=== PATIENT | female | born 1965 | race Caucasian/White ===

== ENCOUNTER → 2016-07-31 | Outpatient (CLI) | payer OTHER ==
[~2016-07-31] MED LIST: GABA-113 PO; LORA-741 PO; PANT40TA PO; SINUS MEDICATION PO; TRAM-10 PO
== END | disposition home or self-care (01) ==
LOC: C.LABSPEC 17:38
PROVIDERS: ATTEND Family Medicine
DX: R30.0 Dysuria (principal); R31.9 Hematuria, unspecified

== ENCOUNTER → 2016-12-06 | Day surgery (SDC) | payer OTHER ==
[2016-11-23 10:24] VITALS: Ht 180.3 cm; Wt 68.2 kg
[~2016-12-06] VITALS: Ht 180.3 cm; Wt 68.2 kg
[~2016-12-06] MED LIST changes: +IOPAMIDOL INJ 61% 15 ML VIAL ONE; +LIDOCAINE HCL 1% MPF 5 ML VIAL ONE; +SODIUM CHLORIDE 0.9% INJ 10 ML VIAL ONE
== END | disposition home or self-care (01) ==
LOC: C.PAT 13:35 → EDSTATUS 13:45
PROVIDERS: ATTEND Physical Medicine & Rehabilitation
DX: M51.26 Other intervertebral disc displacement, lumbar region (principal)

== ENCOUNTER → 2017-06-01 | Outpatient (CLI) | payer OTHER ==
[~2017-06-01] MED LIST changes: -IOPAMIDOL INJ 61% 15 ML VIAL ONE; -LIDOCAINE HCL 1% MPF 5 ML VIAL ONE; -SODIUM CHLORIDE 0.9% INJ 10 ML VIAL ONE
[2017-06-01 18:10] LABS: URINE EPITHELIAL CELL AUTO >30 /lpf (0-5); ZZInitiateTest Complete
[2017-06-01 18:20] LABS: MANUAL MICROSCOPIC REQUIRED? NO; REVIEW REQ? YES
[2017-06-01 18:54] LABS: URINE MUCUS PRESENT (NONE PRSENT)
== END | disposition home or self-care (01) ==
LOC: C.LABSPEC 16:59
PROVIDERS: ATTEND Nurse Practitioner Family
DX: R39.9 Unspecified symptoms and signs involving the genitourinary system (principal)

== ENCOUNTER → 2017-07-09 | Outpatient (CLI) | payer OTHER ==
[~2017-07-09] MED LIST changes: +FLUT0.15 NAE; -SINUS MEDICATION PO
[2017-07-09 17:45] LABS: HEMATOCRIT 35.7 % (37-47); HEMOGLOBIN 11.3 g/dL (12.0-16.0); MEAN CELL VOLUME 68.8 fL (80-100); MEAN CORPUSCULAR HEMOGLOBIN 21.8 pg (25-34); MEAN CORPUSCULAR HGB CONC 31.7 g/dl (32-36); NUCLEATED RED BLOOD CELL ABS 0.06 K/uL (0-0); RED CELL DISTRIBUTION WIDTH CV 16.3 % (11.5-14.5); RED CELL DISTRIBUTION WIDTH SD 40.1 fL (36.4-46.3); WHITE BLOOD COUNT 10.83 K/uL (4.8-10.8)
[2017-07-09 18:07] LABS: BASO % 0.7 %; BASO ABS # 0.08 K/uL (0-0.2); EOS % 6.8 %; EOS ABS # 0.74 K/uL (0-0.5); IG# 0.02 K/uL (0.00-0.02); LYMPH % 32.7 %; LYMPH ABS # 3.54 K/uL (1.2-3.4); MONO % 7.3 %; MONO ABS # 0.79 K/uL (0.11-0.59); NEUT % 52.3 %; NEUT ABS # 5.66 K/uL (1.4-6.5)
== END | disposition home or self-care (01) ==
LOC: C.LABPBG 13:46
PROVIDERS: ATTEND Family Medicine
DX: Z00.00 Encounter for general adult medical examination without abnormal findings (principal); Z13.220 Encounter for screening for lipoid disorders; Z13.1 Encounter for screening for diabetes mellitus; D56.9 Thalassemia, unspecified; R63.5 Abnormal weight gain

== ENCOUNTER → 2017-07-26 | Day surgery (SDC) | payer OTHER ==
[2017-07-06 15:43] VITALS: Ht 180.3 cm; Wt 67.3 kg
[~2017-07-26] VITALS: Ht 180.3 cm; Wt 67.3 kg
[~2017-07-26] MED LIST changes: +IOPAMIDOL INJ 61% 15 ML VIAL ONE; +LIDOCAINE HCL 1% MPF 5 ML VIAL ONE; +SODIUM CHLORIDE 0.9% INJ 10 ML VIAL ONE
--- NOTE | 2017-07-26 13:37 | History & Physical Bridge - [place] ---
H&P Re-Evaluation Bridge Note: I have examined the patient, reviewed the History & Physical and in the interval since the performance of the History & Physical I have noted the following changes of clinical significance: No changes noted
[2017-07-26 14:01] VITALS: BP 106/69; PULSE 67; TEMP 36.9; O2SAT 98
--- NOTE | 2017-07-26 14:01 | [facility] Post Operative Brief Note ---
Immediate Operative Summary Operative Date Jul 26, 2017. 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 Liang Peraza Client Success Director Surgeon(s) None Estimated Blood Loss 0 Findings Consistent with Post-Op Diagnosis Specimens NA Anesthesia Type Local Complication(s) none Disposition Disposition:
--- NOTE | 2017-07-26 14:03 | Discharge Instructions ---
Discharge Instructions Date of Service Jul 26, 2017. Visit Reason for Visit: Lumbosacral Disc Displacement Discharge Discharge Diagnosis / Problem: right greater than left leg pain Discharge Goals Goal(s): Decrease discomfort, Improve function Activity Recommendations Activity Limitations: resume your previous activity Anesthesia . Post Anesthesia Instructions: If you have had General Anesthesia or IV Sedation: * Do not drive today. * Resume driving when surgeon permits. * Do not make important decisions or sign legal documents today. * Call surgeon for: 1. Temperature elevations greater than 101 degrees F. 2. Uncontrollable pain. 3. Excessive bleeding. 4. Persistent nausea and vomiting. 5. Medication intolerance (nausea, vomiting or rash). * For nausea and vomiting use only clear liquids such as: tea, soda, bouillon until nausea subsides, then gradually increase diet as tolerated. * If you have any concerns or questions, call your surgeon's office. If physician is unavailable and it is an emergency, call 911 or go to the nearest emergency room. . Diet Recommendations Recommended Home Diet: resume previous diet Procedures Procedures Performed: Lumbar Epidural Steroid Injection Pending Studies Studies pending at discharge: no Medical Emergencies . Who to Call and When: Medical Emergencies: If at any time you feel your situation is an emergency, please call 911 immediately. . Non-Emergent Contact Non-Emergency issues call your: Specialist . . "Provider Documentation" section prepared by Roberto Peraza. .
--- NOTE | 2017-07-26 14:48 | OPERATIVE REPORT ---
DATE OF OPERATION: 07/26/2017 PREOPERATIVE DIAGNOSIS: L5-S1 herniated nucleus pulposus with right lower extremity radiculopathy. POSTOPERATIVE DIAGNOSIS: Same. PROCEDURE: Right paramedian L5-S1 intralaminar epidural steroid injection under fluoroscopic guidance. INDICATIONS: The patient is a 51-year-old white female who presents for an epidural injection. She has gotten some benefit from the gabapentin; however, had not enough and presents today for an epidural to provide her with relief of continuing radicular pain down the left greater than right leg. PHYSICAL EXAMINATION: Pleasant female seated comfortably. No focal weakness, increased sensitivity to the right L5 dermatomal distribution to light touch, but decreased in the S1 dermatomal distribution in the right lower extremity. CONSENT: Verbal and written consent was obtained from the patient. Risks and benefits were reviewed. Risks include but are not limited to epidural abscess, epidural hematoma, allergic reaction, dural puncture. The patient wishes to proceed. PROCEDURE: The patient was taken back to the special procedures room of the [facility] where she was maintained in a prone position. Backside was cleansed with Betadine x3 and a dry sterile dressing was applied. Fluoroscope was used to identify the L5-S1 interlaminar space. Overlying skin on the right side was anesthetized with 4 mL of lidocaine 1% with a 25-gauge 1.5-inch needle. A 22-gauge 4-1/4 inch Tuohy needle was then directed down towards the interlaminar space. It was advanced and laterally was noted loss of resistance at a depth of 9.5 cm. Isovue-300 contrast 1 mL was injected, which demonstrated an epidural uptake pattern. She then underwent injection after negative aspiration of 40 mg of Depo-Medrol and 4 mL of preservative-free sodium chloride. Injection was well tolerated and reproduced a familiar transient radicular sensation down the leg. DISPOSITION: 1. The patient is taken out into the discharge recovery area where she will be discharged home once discharge criteria have been met. 2. Follow up in the [facility] office in 2-4 weeks. I attest to the content of the Intraoperative Record and any orders documented therein. Any exception s are noted below.
== END | disposition home or self-care (01) ==
LOC: X.SURG 12:43
PROVIDERS: ATTEND Physical Medicine & Rehabilitation
DX: M51.17 Intervertebral disc disorders with radiculopathy, lumbosacral region (principal)

== ENCOUNTER 2018-12-10 10:49 | Inpatient (IN) ==
[2018-12-10] MEDS ORDERED: ALBUT/IPRATROP 3MG/0.5MG NEB 3 ML VIAL INH STA (11:20)
--- NOTE | 2018-12-10 11:29 | Emergency Department Note ---
History of Present Illness General Chief complaint: Shortness of Breath/Dyspnea Stated complaint: SOB,COUGHING,WEAKNESS,FEVER CHILLS,PNEUMONIA Time Seen by Provider: 12/10/18 11:00 History of Present Illness 52-year-old female who presents the emergency department with complaint of persistent pneumonialike symptoms, including shortness of breath, productive cough, weakness, fever lower central chest pain. The patient reports that she became sick approximately a month ago. She has 2 twin granddaughters with cystic fibrosis that developed pneumonia around that time. When the patient did not improve, she was seen at the [facility] urgent care center in [place], and had a chest x-ray showing pneumonia. She does not recall where the consolidation was located. She was treated with Levaquin antibiotics daily for 5 days. She reports that by day 3, she was feeling better, but shortly after finishing the antibiotics, her symptoms worsened again. She was also placed on prednisone and an albuterol inhaler. She reports that all the prednisone did was make her angry and made her work harder. The patient has also been taking DayQuil. 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 She also reports that she was admitted to [facility] approximately 2 years ago for sepsis from pneumonia. She denies any other baseline cardiopulmonary disease. She currently rates her discomfort a 5 out of 10. The patient reports that her was concerned because she was sweating this morning and seemed to be incoherent when he awakened her around 4 AM. The patient reports feeling so weak that her was going to call 911. The patient was able to drive herself to the emergency department. Home Medications Home Medications Medication Instructions Recorded Confirmed Type cyanocobalamin (vitamin B-12) 1,000 mcg PO QAM 08/16/18 12/10/18 History [Vitamin B-12] fluticasone propionate [Flonase 2 spray INTRANASAL QAM 08/16/18 12/10/18 History Allergy Relief] montelukast 10 mg PO HS 08/16/18 12/10/18 History acetaminophen [Tylenol] 325 mg PO Q6H PRN 12/10/18 12/10/18 History gabapentin 800 mg PO TID 12/10/18 12/10/18 History ranitidine HCl 75 mg PO QAM 12/10/18 12/10/18 History tramadol 100 mg PO Q6H PRN 12/10/18 12/10/18 History Allergies Allergy/AdvReac Type Severity Reaction Status Date / Time latex Allergy Mild severe Verified 12/10/18 12:00 rash "looks like a burn" Penicillins Allergy Mild HIVES Verified 12/10/18 12:00 ciprofloxacin Allergy Hives Verified 12/10/18 17:31 NSAIDS (Non-Steroidal AdvReac Severe BLEEDING/STOMACH Verified 12/10/18 12:00 Anti-Inflamma ULCERS Past Med/Surg History Medical History Anxiety no meds Chronic back pain GERD (gastroesophageal reflux disease) History of anesthesia reaction difficulty waking up after splenectomy History of gastric ulcer Kidney stones Thalassemia Surgical History History of appendectomy History of bilateral tubal ligation History of dilatation and curettage History of esophagogastroduodenoscopy (EGD) 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 History of tooth extraction History of total abdominal hysterectomy and bilateral salpingo-oophorectomy History of wisdom tooth extraction Family History Mother Family history of diabetes mellitus Father , due to [place] Myocardial infarction Mother Stroke x2 at 36 and 38 y/o Other No family history of adverse response to anesthesia Social History Preferred Language: Turkmen Communication Ability: Effective Beliefs That Will Affect Care: None Current Living Situation: Spouse and Family Current Living Situation Comment: Lives with and granddaughter Feels Safe at Home: Yes Smoking Status: Current every day smoker Tobacco Type: cigarettes Cigarettes Per Day: 10-20 Second Hand Exposure: No Hx Alcohol Use: No Hx Substance Use: No Review of Systems HEENT: Denies dizziness, visual problems, hearing loss, tinnitus. Denies difficulty swallowing or oral lesions. PULMONARY: See HPI. CARDIOVASCULAR: Denies palpitations, dyspnea on exertion, orthopnea or peripheral edema. GASTROINTESTINAL: Denies diarrhea, constipation, nausea, vomiting, or abdominal pain. GENITOURINARY: Denies dysuria, frequency, urgency or nocturia. NEUROLOGIC: Denies history of epilepsy, CVA, TIA or chronic headaches. MUSCULOSKELETAL: Denies history of joint tenderness/swelling. SKIN: Denies rashes or lesions. PSYCHIATRIC: Denies history of depression or mental illness. ENDOCRINE: Denies history of diabetes or thyroid disorders. Physical Exam Vital Signs Vital Signs - 24 hr 12/10/18 10:57 12/10/18 11:31 12/10/18 11:36 Temperature 36.8 C Temperature Source Oral Sepsis Recent Fever Within 48 Hours No Sepsis New/Unexplained Change in Mental Status No Sepsis Action Taken by Nursing No Action Required Pulse Rate 101 H Pulse Rate [Apical] Pulse Rate from SpO2 Sensor Respiratory Rate 18 18 Respiratory Effort / Characteristics Non-Labored Spontaneous Blood Pressure 128/83 Blood Pressure [Left Arm] Blood Pressure Mean 98 Blood Pressure Mean [Left Arm] Pulse Oximetry 96 98 Oxygen Delivery Method Room Air Room Air Room Air 12/10/18 11:51 12/10/18 12:35 12/10/18 13:01 Temperature Temperature Source Sepsis Recent Fever Within 48 Hours Sepsis New/Unexplained Change in Mental Status Sepsis Action Taken by Nursing Pulse Rate 77 74 Pulse Rate [Apical] 86 Pulse Rate from SpO2 Sensor 80 74 Respiratory Rate 20 12 14 Respiratory Effort / Characteristics Blood Pressure 113/91 132/92 Blood Pressure [Left Arm] 123/73 Blood Pressure Mean 98 105 Blood Pressure Mean [Left Arm] 89 Pulse Oximetry 94 95 98 Oxygen Delivery Method Room Air Room Air 12/10/18 13:31 12/10/18 14:01 Temperature Temperature Source Sepsis Recent Fever Within 48 Hours Sepsis New/Unexplained Change in Mental Status Sepsis Action Taken by Nursing Pulse Rate 79 80 Pulse Rate [Apical] Pulse Rate from SpO2 Sensor 80 80 Respiratory Rate 15 16 Respiratory Effort / Characteristics Blood Pressure 122/81 135/86 Blood Pressure [Left Arm] Blood Pressure Mean 94 102 Blood Pressure Mean [Left Arm] Pulse Oximetry 93 93 Oxygen Delivery Method Room Air Room Air CONSTITUTIONAL: Healthy and well nourished. Alert and oriented X 3. She does not appear acutely ill or toxic. HEENT: Normocephalic, atraumatic. Pupils equal, round and reactive. Ears and nares are clear. No TM bulging, rhinorrhea or posterior pharyngeal yanelis thema/postnasal drip. NECK: Full active range of motion without discomfort. LYMPHATICS: No cervical chain adenopathy. RESPIRATORY: Clear to auscultation bilaterally with no wheezing, crackles, rho nchi or stridor. CARDIOVASCULAR: Regular rate and rhythm with no murmurs, rubs or gallops. GASTROINTESTINAL: Bowel sounds present in all quadrants. Soft and nontender to palpation. MUSCULOSKELETAL: Full range of motion of all joints without discomfort. INTEGUMENTARY: No rash or other significant dermatologic conditions noted. HEMATOLOGIC: No ecchymosis or petechiae. PSYCHIATRIC: Positive affect. NEUROLOGIC: No focal neurologic deficits noted. Course Patient history and physical exam were performed. Nurse's notes were reviewed. I also reviewed medical records, showing that the patient did have a two-view chest x-ray performed outside of our facility on 11/26/2018 that did not show any consolidations, pneumothorax or other concerning findings. Today's vital signs were reviewed. The patient is mildly tachycardic, otherwise is afebrile and normotensive. O2 saturation is 96% on room air. The patient did not appear in any acute respiratory distress. IV access was established, and labs were drawn, including blood cultures x2. An ECG was normal. A two- view chest x-ray does not show any consolidations, pneumothorax or cardiomegaly. The patient was administered a unit dose DuoNeb treatment without relief. Review of labs shows an elevated aodtc-eg-ngst troponin of 0.13. An additional lab troponin was ordered, showing 0.204. Patient also has a white count of over 18,000 with left shift and bandemia.Coagulation studies and CMP are normal. Acysd-bn-afco lactate was also normal. After seeing the elevated troponin, the patient was reexamined. She then admitted that she has been having intermittent left-sided chest pain, and is also had some recent pain radiating into the right shoulder. She reports significant exposure to secondhand smoke. She does not recall if she has an elevated cholesterol level. Both her father and paternal grandfather both in their early 60s from myocardial infarction. The patient was administered aspirin 324 mg and an inch of nitroglycerin paste to the chest wall as she was having pain rated a 5 out of 10. The case was then further discussed with Dr. Jordan, ED attending physician, who recommended consulting [facility] cardiology and hospitalist service. I did speak with Dr. Kevin, the hospitalist who also evaluated the patient. The [facility] cardiology service was paged but never returned our phone call. Administered Medications Tramadol HCl (Ultram) 100 mg PO Q6H PRN PRN Reason: Pain Stop: 01/09/19 15:33 Last Admin: 12/10/18 16:06 Dose: 100 mg Documented by: [id number] Discontinued Medications Albuterol (Duoneb) 3 ml INH NOW STA Stop: 12/10/18 11:21 Last Admin: 12/10/18 11:34 Dose: 3 ml Documented by: [id number] Aspirin (Aspirin) 324 mg PO NOW STA Stop: 12/10/18 12:54 Last Admin: 12/10/18 13:22 Dose: 324 mg Documented by: [id number] Diphenhydramine HCl (Benadryl Capsule) 50 mg PO NOW ONE Stop: 12/10/18 17:24 Last Admin: 12/10/18 17:55 Dose: Not Given Documented by: [id number] Diphenhydramine HCl (Benadryl Capsule) 25 mg PO NOW ONE Stop: 12/10/18 17:55 Last Admin: 12/10/18 18:46 Dose: 25 mg Documented by: [id number] Sodium Chloride (Nss 1000ml) 1,000 mls @ 999 mls/hr IV .Q1H1M NICHOLAS Stop: 12/10/18 12:30 Last Infusion: 12/10/18 12:55 Dose: 0 mls/hr Documented by: [id number] Admin: 12/10/18 11:50 Dose: 999 mls/hr Documented by: [id number] Acetaminophen (Ofirmev) 1,000 mg in 100 mls @ 400 mls/hr IV NOW STA Stop: 12/10/18 14:44 Last Infusion: 12/10/18 14:50 Dose: 0 mls/hr Documented by: [id number] Admin: 12/10/18 14:33 Dose: 400 mls/hr Documented by: [id number] Ciprofloxacin (Cipro) 400 mg in 200 mls @ 100 mls/hr IV Q12H NICHOLAS Stop: 12/20/18 15:59 Last Infusion: 12/10/18 17:55 Dose: 0 mls/hr Documented by: [id number] Infusion: 12/10/18 17:04 Dose: 0 mls/hr Documented by: [id number] Admin: 12/10/18 16:07 Dose: 100 mls/hr Documented by: [id number] Nitroglycerin (Nitro-Bid 2%) 1 inch EXT NOW ONE Stop: 12/10/18 12:54 Last Admin: 12/10/18 13:22 Dose: 1 inch Documented by: [id number] Medical Decision Making Medical Records Attestation: I reviewed the patient's medical records. Home Medications Current Medication List: was personally reviewed by me Laboratory Data Attestation: I reviewed the patient's lab results. Result diagrams: 12/10/18 11:26 12/10/18 11:26 Lab Results 12/10/18 12/10/18 12/10/18 Range/Units 11:26 11:26 11:26 WBC 18.23 H (4.8-10.8) K/uL RBC 5.30 (4.2-5.4) M/uL Hgb 12.0 (12.0-16.0) g/dL Hct 36.8 L (37-47) % MCV 69.4 L (80-100) fL MCH 22.6 L (25-34) pg MCHC 32.6 (32-36) g/dL RDW Std Deviation 42.4 (36.4-46.3) fL RDW Coeff of Chava 17.2 H (11.5-14.5) % Plt Count 544 H (130-400) K/uL MPV 9.3 (7.4-10.4) fL Immature Gran % (Auto) 0.3 % Neut % (Auto) 67.8 % Lymph % (Auto) 18.3 % [place] % (Auto) 7.2 % Eos % (Auto) 5.9 % Baso % (Auto) 0.5 % Immature Gran # (Auto) 0.06 H (0.00-0.02) K/uL Neut # (Auto) 12.36 H (1.4-6.5) K/uL Lymph # (Auto) 3.33 (1.2-3.4) K/uL [place] # (Auto) 1.31 H (0.11-0.59) K/uL Eos # (Auto) 1.08 H (0-0.5) K/uL Baso # (Auto) 0.09 (0-0.2) K/uL Polychromasia 1+ Hypochromasia Present Basophilic Stippling Occasional Microcytosis Present Target Cells 1+ [place] Bodies 1+ Schistocytes 1+ PT 9.8 (9.0-12.0) Seconds INR 1.0 (0.9-1.1) APTT 24.7 (21.0-31.0) Seconds PTT Ratio 0.9 Sodium 142 (136-145) mmol/L Potassium 4.1 (3.5-5.1) mmol/L Chloride 111 H (98-107) mmol/L Carbon Dioxide 28 (21-32) mmol/L Anion Gap 3.0 (3-11) BUN 10 (7-18) mg/dl Creatinine 0.71 (0.6-1.2) mg/dl Est Cr Clr Drug Dosing 109.4 ml/min Est GFR ( Amer) 115.1 Est GFR (Non-Af Amer) 99.3 BUN/Creatinine Ratio 14.4 (10-20) Glucose 78 (70-99) mg/dl POC Lactic Acid Reji (0.90-1.70) mmol/L Calcium 8.7 (8.5-10.1) mg/dl Total Bilirubin 0.2 (0.2-1) mg/dl AST 18 (15-37) U/L ALT 20 (12-78) U/L Alkaline Phosphatase 74 (45-117) U/L POC Troponin I (0-0.045) ng/ml Troponin I 0.204 H* (0-0.045) ng/ml Total Protein 7.2 (6.4-8.2) gm/dl Albumin 3.2 L (3.4-5.0) gm/dl Globulin 4.0 (2.5-4.0) gm/dl Albumin/Globulin Ratio 0.8 L (0.9-2) Urine Color Urine Appearance (Clear) Urine pH (4.5-7.5) Ur Specific [place] (1.000-1.030) Urine Protein (Negative) Urine Glucose (UA) (Negative) Urine Ketones (Negative) Urine Blood (Negative) Urine Nitrite (Negative) Urine Bilirubin (Negative) Urine Urobilinogen (Negative) Ur Leukocyte Esterase (Negative) Urine WBC (Auto) (0-5) /hpf Urine RBC (Auto) (0-4) /hpf U Hyaline Cast (Auto) (0-5) /lpf U Epithel Cells (Auto) (0-5) /lpf Urine Bacteria (Auto) (Negative) 12/10/18 12/10/18 12/10/18 Range/Units 11:51 11:54 11:55 WBC (4.8-10.8) K/uL RBC (4.2-5.4) M/uL Hgb (12.0-16.0) g/dL Hct (37-47) % MCV (80-100) fL MCH (25-34) pg MCHC (32-36) g/dL RDW Std Deviation (36.4-46.3) fL RDW Coeff of Chava (11.5-14.5) % Plt Count (130-400) K/uL MPV (7.4-10.4) fL Immature Gran % (Auto) % Neut % (Auto) % Lymph % (Auto) % [place] % (Auto) % Eos % (Auto) % Baso % (Auto) % Immature Gran # (Auto) (0.00-0.02) K/uL Neut # (Auto) (1.4-6.5) K/uL Lymph # (Auto) (1.2-3.4) K/uL [place] # (Auto) (0.11-0.59) K/uL Eos # (Auto) (0-0.5) K/uL Baso # (Auto) (0-0.2) K/uL Polychromasia Hypochromasia Basophilic Stippling Microcytosis Target Cells [place] Bodies Schistocytes PT (9.0-12.0) Seconds INR (0.9-1.1) APTT (21.0-31.0) Seconds PTT Ratio Sodium (136-145) mmol/L Potassium (3.5-5.1) mmol/L Chloride (98-107) mmol/L Carbon Dioxide (21-32) mmol/L Anion Gap (3-11) BUN (7-18) mg/dl Creatinine (0.6-1.2) mg/dl Est Cr Clr Drug Dosing ml/min Est GFR ( Amer) Est GFR (Non-Af Amer) BUN/Creatinine Ratio (10-20) Glucose (70-99) mg/dl POC Lactic Acid Reji 1.49 (0.90-1.70) mmol/L Calcium (8.5-10.1) mg/dl Total Bilirubin (0.2-1) mg/dl AST (15-37) U/L ALT (12-78) U/L Alkaline Phosphatase (45-117) U/L POC Troponin I 0.13 H (0-0.045) ng/ml Troponin I (0-0.045) ng/ml Total Protein (6.4-8.2) gm/dl Albumin (3.4-5.0) gm/dl Globulin (2.5-4.0) gm/dl Albumin/Globulin Ratio (0.9-2) Urine Color Yellow Urine Appearance Clear (Clear) Urine pH 7.0 (4.5-7.5) Ur Specific [place] 1.016 (1.000-1.030) Urine Protein Negative (Negative) Urine Glucose (UA) Negative (Negative) Urine Ketones Negative (Negative) Urine Blood 1+ H (Negative) Urine Nitrite Negative (Negative) Urine Bilirubin Negative (Negative) Urine Urobilinogen Negative (Negative) Ur Leukocyte Esterase 2+ H (Negative) Urine WBC (Auto) 1-5 (0-5) /hpf Urine RBC (Auto) 5-10 H (0-4) /hpf U Hyaline Cast (Auto) 0 (0-5) /lpf U Epithel Cells (Auto) 10-20 H (0-5) /lpf Urine Bacteria (Auto) Negative (Negative) 12/10/18 Range/Units 13:53 WBC (4.8-10.8) K/uL RBC (4.2-5.4) M/uL Hgb (12.0-16.0) g/dL Hct (37-47) % MCV (80-100) fL MCH (25-34) pg MCHC (32-36) g/dL RDW Std Deviation (36.4-46.3) fL RDW Coeff of Chava (11.5-14.5) % Plt Count (130-400) K/uL MPV (7.4-10.4) fL Immature Gran % (Auto) % Neut % (Auto) % Lymph % (Auto) % [place] % (Auto) % Eos % (Auto) % Baso % (Auto) % Immature Gran # (Auto) (0.00-0.02) K/uL Neut # (Auto) (1.4-6.5) K/uL Lymph # (Auto) (1.2-3.4) K/uL [place] # (Auto) (0.11-0.59) K/uL Eos # (Auto) (0-0.5) K/uL Baso # (Auto) (0-0.2) K/uL Polychromasia Hypochromasia Basophilic Stippling Microcytosis Target Cells [place] Bodies Schistocytes PT (9.0-12.0) Seconds INR (0.9-1.1) APTT (21.0-31.0) Seconds PTT Ratio Sodium (136-145) mmol/L Potassium (3.5-5.1) mmol/L Chloride (98-107) mmol/L Carbon Dioxide (21-32) mmol/L Anion Gap (3-11) BUN (7-18) mg/dl Creatinine (0.6-1.2) mg/dl Est Cr Clr Drug Dosing ml/min Est GFR ( Amer) Est GFR (Non-Af Amer) BUN/Creatinine Ratio (10-20) Glucose (70-99) mg/dl POC Lactic Acid Reji (0.90-1.70) mmol/L Calcium (8.5-10.1) mg/dl Total Bilirubin (0.2-1) mg/dl AST (15-37) U/L ALT (12-78) U/L Alkaline Phosphatase (45-117) U/L POC Troponin I (0-0.045) ng/ml Troponin I 0.309 H* (0-0.045) ng/ml Total Protein (6.4-8.2) gm/dl Albumin (3.4-5.0) gm/dl Globulin (2.5-4.0) gm/dl Albumin/Globulin Ratio (0.9-2) Urine Color Urine Appearance (Clear) Urine pH (4.5-7.5) Ur Specific [place] (1.000-1.030) Urine Protein (Negative) Urine Glucose (UA) (Negative) Urine Ketones (Negative) Urine Blood (Negative) Urine Nitrite (Negative) Urine Bilirubin (Negative) Urine Urobilinogen (Negative) Ur Leukocyte Esterase (Negative) Urine WBC (Auto) (0-5) /hpf Urine RBC (Auto) (0-4) /hpf U Hyaline Cast (Auto) (0-5) /lpf U Epithel Cells (Auto) (0-5) /lpf Urine Bacteria (Auto) (Negative) Imaging Data Attestation: I personally reviewed and interpreted this imaging study as follow s: My Impression: My interpretation of a two-view chest x-ray does not show any consolidations, pneumothorax or cardiomegaly. Radiologist report was also reviewed. Radiologist's Impression: XR chest 2V routine CLINICAL HISTORY: Dyspnea. COMPARISON STUDY: No previous studies for comparison. FINDINGS: Lung volumes are at the upper limits of normal. There is no pneumothorax or pleural effusion. There is no consolidation or evidence for pulmonary edema. Cardiac size is normal. Mediastinal contours are normal. IMPRESSION: 1. No acute cardiopulmonary findings. 2. Mild lung hyperinflation. ECG Data Attestation: I personally reviewed and interpreted this ECG as follows: Indication: chest pain and SOB/dyspnea Rate (beats per minute): 81 Rhythm: normal sinus Comparison ECG Date: no prior available Blood Pressure Blood Pressure Findings: Normal blood pressure MDM Narrative Patient presents the emergency department with complaint of chest discomfort that she attributes to possible pneumonia. She also awoke this morning with diaphoresis and extreme weakness. Laboratory studies shows an elevated troponin, and with a normal ECG, is concerning for non-STEMI. The patient does have a notable leukocytosis with left shift and bandemia, concerning for other infectious etiology. Blood cultures were ordered, although the patient does not have any lactic acidosis. Impression & Plan Non-STEMI (non-ST elevated myocardial infarction) Discharge Plan Visit Data *Final* Discharge Date/Time: 12/10/18 14:53 Chief Complaint: Shortness of Breath/Dyspnea Stated Complaint: SOB,COUGHING,WEAKNESS,FEVER CHILLS,PNEUMONIA ED Provider: Akhil Jordan ED Midlevel Provider: Andrew Dodge Discharge Problem: Non-STEMI (non-ST elevated myocardial infarction) Patient Disposition: Admitted As Inpatient Discharge Instructions Interventions: ED Discharge Assessment Last Done: 12/10/18 14:53
[2018-12-10] MEDS ORDERED: SODIUM CHLORIDE 0.9% 1000ML 1,000 ML IV SCH (11:30)
[2018-12-10 12:04] LABS: Basophils # (auto) 0.09 K/uL (0-0.2); Basophils % (auto) 0.5 %; Eosinophils # (auto) 1.08 K/uL (0-0.5); Eosinophils % (auto) 5.9 %; Hematocrit (blood only) 36.8 % (37-47); Immature Granulocytes # (auto) 0.06 K/uL (0.00-0.02); Immature Granulocytes % (auto) 0.3 %; Lymphocytes # (auto) 3.33 K/uL (1.2-3.4); Lymphocytes % (auto) 18.3 %; Mean Corpuscular Hgb Conc 32.6 g/dL (32-36); Mean Corpuscular Volume 69.4 fL (80-100); Mean Platelet Volume 9.3 fL (7.4-10.4); Monocytes # (auto) 1.31 K/uL (0.11-0.59); Monocytes % (auto) 7.2 %; Neutrophils # (auto) 12.36 K/uL (1.4-6.5); Neutrophils % (auto) 67.8 %; Platelet Count 544 K/uL (130-400); RDW Coefficient of Variation 17.2 % (11.5-14.5); RDW Standard Deviation 42.4 fL (36.4-46.3); White Blood Count 18.23 K/uL (4.8-10.8)
[2018-12-10 12:09] LABS: Appearance Urine Clear (Clear); Bacteria Urine Automated Negative (Negative); Bilirubin Urine Negative (Negative); Blood Urine 1+ (Negative); Cast Urine Automated 0 /lpf (0-5); Color Urine Yellow; Glucose Urine UA Negative (Negative); Ketones Urine Negative (Negative); Leukocyte Esterase Urine 2+ (Negative); Nitrite Urine Negative (Negative); Protein Urine Negative (Negative); Specific Gravity Urine 1.016 (1.000-1.030); Urobilinogen Urine Negative (Negative)
[2018-12-10 12:14] LABS: Partial Thromboplastin Ratio 0.9; Partial Thromboplastin Time 24.7 Seconds (21.0-31.0); Prothrombin Time 9.8 Seconds (9.0-12.0)
[2018-12-10 12:23] LABS: Albumin Level 3.2 gm/dl (3.4-5.0); BUN Creatinine Ratio 14.4 (10-20); Calcium 8.7 mg/dl (8.5-10.1); Creatinine Clr Calc Pharmacy 109.4 ml/min; Est GFR (African American) 115.1; Est GFR (Non-African American) 99.3; Potassium 4.1 mmol/L (3.5-5.1)
--- NOTE | 2018-12-10 12:30 | XRay Report ---
XR chest 2V routine CLINICAL HISTORY: Dyspnea. COMPARISON STUDY: No previous studies for comparison. FINDINGS: Lung volumes are at the upper limits of normal. There is no pneumothorax or pleural effusio n. There is no consolidation or evidence for pulmonary edema. Cardiac size is normal. Mediastinal con tours are normal. IMPRESSION: 1. No acute cardiopulmonary findings. 2. Mild lung hyperinflation. Electronically signed by: Pranay Flannery M.D. 12/10/2018 12:28 PM
[2018-12-10 12:31] LABS: Albumin Globulin Ratio 0.8 (0.9-2); Bilirubin,Total 0.2 mg/dl (0.2-1); Total Protein 7.2 gm/dl (6.4-8.2); Troponin I 0.204 ng/ml (0-0.045)
[2018-12-10 12:35] LABS: Basophilic Stippling Occasional; Howell-Jolly Bodies 1+; Hypochromasia Present; Microcytosis Present; Polychromasia 1+; Schistocytes 1+; Target Cells 1+
[2018-12-10] MEDS ORDERED: ASPIRIN CHEW 324 MG PO STA (12:53)
[2018-12-10] MEDS ORDERED: NITROGLYCERIN 2% OINTMENT 30GM TUBE EXT ONE (12:53)
[2018-12-10] MEDS ORDERED: ACETAMINOPHEN 1,000 MG/100 ML VIAL IV STA (14:30)
--- NOTE | 2018-12-10 14:36 | History & Physical Report ---
Date of Service December 10, 2018 Assessment & Plan (1) Chest pain: Elevated trop at 0.13 -> 0.2 EKG WNL CXR neg for acute CBC, PRP WNL ECHO pending Awaiting cardiology eval, will defer heparin drip to cardiology team Of note, pt has been with decreased PO intake due to GI issues and generally f eeling unwell--possible muscle breakdown related to this could cause a slightly elevated trop (2) Abnormal urine: UA noted + leuk est, neg nitrites, + blood Hx of UTIs and has UTI sx WBC elevated Will start on cipro and monitor Cx pending (3) PNA (pneumonia): Completed course of abx prior CXR neg for PNA (4) Abdominal pain: R sided and with high fat/cholesterol foods LFTs WNL Will likely need GB evaluation as outpt (5) Back pain: continue home meds, tramadol and gabapentin (6) Tobacco use disorder: Would like a nicotine patch if no issues from cardiac standpoint (7) GERD (gastroesophageal reflux disease): continue home meds (8) Anxiety: Not on current medications for this (9) DVT prophylaxis: SCDs History of Present Illness Primary Care Provider: Amaya Rojas MD 52 y/o F c/o chest pain. Pt states it is more of a heaviness that is substernal and to the L side of her chest. This has been happening intermittently for a few weeks, but it was much more intense yesterday and today. So she came to the ED. Pt states that about 3 weeks ago she started having URI type sx--coughing with green sputum production, congestion, and just generally feeling unwell. About 2 weeks ago, she went to an urgent care. She had a CXR and was dx with PNA. She was given levaquin x5 days, which she completed. Initially, she did feel improved, but a few days after completion of abx, she had return of cough, congestion, and just generally feeling unwell. Yesterday she was so weak she had difficulty walking and she slept most of the day. Pt denies fever, SOB, c/d, LE pain. She does note some mild R LE swelling around her ankle yesterday that is better today. She has no prior hx of chest pain or feeling this unwell. Pt states that she has not been eating much lately. She states that this is due to having n/v and R sided abd pain with PO intake. She gives examples of steak or fries, but states that there were other foods that would trigger. They use a [employer] grill for most of their cooking and fries are done in the oven. They do not eat fried foods. She states that she might have a few bites of something but then stops eating due to an effort to avoid these sx. She has not been seen for this. Pt does not hx of UTI. She has been having some discomfort with urination and some increased frequency. Allergies Allergy/AdvReac Type Severity Reaction Status Date / Time latex Allergy Mild severe Verified 12/10/18 12:00 rash "looks like a burn" Penicillins Allergy Mild HIVES Verified 12/10/18 12:00 NSAIDS (Non-Steroidal AdvReac Severe BLEEDING/STOMACH Verified 12/10/18 12:00 Anti-Inflamma ULCERS Home Medications Home Medications Medication Instructions Recorded Confirmed Type cyanocobalamin (vitamin B-12) 1,000 mcg PO QAM 08/16/18 12/10/18 History [Vitamin B-12] fluticasone propionate [Flonase 2 spray INTRANASAL QAM 08/16/18 12/10/18 History Allergy Relief] montelukast 10 mg PO HS 08/16/18 12/10/18 History acetaminophen [Tylenol] 325 mg PO Q6H PRN 12/10/18 12/10/18 History gabapentin 800 mg PO TID 12/10/18 12/10/18 History ranitidine HCl 75 mg PO QAM 12/10/18 12/10/18 History tramadol 100 mg PO Q6H PRN 12/10/18 12/10/18 History Past Med/Surg History Medical History Anxiety no meds Chronic back pain GERD (gastroesophageal reflux disease) History of anesthesia reaction difficulty waking up after splenectomy History of gastric ulcer Kidney stones Thalassemia Surgical History History of appendectomy History of bilateral tubal ligation History of dilatation and curettage History of esophagogastroduodenoscopy (EGD) 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 History of tooth extraction History of total abdominal hysterectomy and bilateral salpingo-oophorectomy History of wisdom tooth extraction Family History Mother Family history of diabetes mellitus Father , due to [place] Myocardial infarction Mother Stroke x2 at 36 and 38 y/o Other No family history of adverse response to anesthesia Social History Preferred Language: Kyr[place]z Communication Ability: Effective Beliefs That Will Affect Care: None Current Living Situation: Spouse and Family Current Living Situation Comment: Lives with and granddaughter Feels Safe at Home: Yes Smoking Status: Current every day smoker Tobacco Type: cigarettes Cigarettes Per Day: 10-20 Second Hand Exposure: No Hx Alcohol Use: No Hx Substance Use: No Review of Systems Review of Systems: Pertinent positives and negatives reviewed in HPI--all others negative Physical Exam Constitutional: WD/WN, vitals as above Eyes: normal visual patel by confrontation and + anicteric sclerae Neck: normal visual inspection and trachea midline Respiratory: normal respiratory effort, lungs clear to auscultation Cardiovascular: Rate/Rhythm: regular rate and regular rhythm Gastrointestinal (Abdomen): Inspection/Auscultation: abdomen not distended Percussion/Palpation: abdomen soft; abdomen nontender Musculoskeletal: Head/Neck/Chest: normocephalic and head atraumatic Trace R sided nonpitting edema around lateral malleolus, peripheral pulses intact Substernal and L sided chest pain that is reproducible to palpitation Skin: no rashes, warm and dry Neurologic: awake; not confused Speech / Cognition: normal speech Psychiatric: A+Ox3, euthymic affect Results & Data Vital Signs (Past 12 Hours) Vital Signs Temp Pulse Pulse Resp BP BP Pulse Ox 12/10/18 14:01 80 16 135/86 93 12/10/18 13:31 79 15 122/81 93 12/10/18 13:01 74 14 132/92 98 12/10/18 12:35 77 12 113/91 95 12/10/18 11:51 86 20 123/73 94 12/10/18 11:36 18 98 12/10/18 10:57 36.8 C 101 H 18 128/83 96 Diagnostic Findings CXR: neg for acute ECG Rhythm: normal sinus Code Status & VTE Plan Code Status Full code VTE Prophylaxis Plan VTE Prophylaxis will be ordered: Yes PG Care Time/CCT Total # of Minutes Spent Total Time Spent with Patient: Total time spent is greater than 50% in coordination of care (as documented) at patient's floor/unit and/or counseling patient:
[2018-12-10] MEDS ORDERED: ONDANSETRON INJ 2 MG/ML 2 ML VIAL IV PRN (15:34)
[2018-12-10] MEDS ORDERED: ACETAMINOPHEN 325 MG TAB PO PRN ×2 (15:34)
[2018-12-10] MEDS ORDERED: MAGNESIUM HYDROXIDE SUSP 30 ML UDC PO PRN (15:34)
[2018-12-10] MEDS ORDERED: PNEUMOCOCCAL POLYSACCHARIDES 25 MCG/0.5 ML VIAL/SYR IM ONE (16:00)
[2018-12-10] MEDS ORDERED: PNEUMOCOCCAL ADMINISTRATION CHARGE ONE (16:00)
[2018-12-10] MEDS ORDERED: CIPROFLOXACIN 400 MG/200 ML BAG IV SCH (16:00)
[2018-12-10] MEDS: TRAMADOL HCL 50 MG TABLET PO PRN ×2 (16:06→21:37)
[2018-12-10 17:32] LABS: Lyme Ab IgG w/WB Rflx Negative (Negative); Lyme Ab IgM w/WB Rflx Negative (Negative)
--- NOTE | 2018-12-10 18:58 | Cardiology Consultation ---
Date of Consultation December 10, 2018 Assessment & Plan (1) Chest pain: Patient has some objective evidence of cardiac ischemia or injury based on persistently elevated cardiac biomarkers. The elevation is quite minor and may represent injury which occurred approximately 24 hours ago. We get to see the peak of her markers. She is not currently having symptoms of chest discomfort. Chest discomfort is somewhat atypical in that it seemed to be worse with coughing and has an element of reproducibility. She has no other history of cardiac disease or symptoms consistent with angina. I think more interesting was her symptoms of �indigestion� last evening. This represented a different fe eling in her chest and could have represented an episode of ischemia. In any event, the overall injury appears to be fairly minor at this point. She seems unlikely to have had an acute coronary syndrome an alternate etiologies could involve some form of myocarditis or injury associated with what appears to be some form of infection. I think we will trend her markers overnight. She has been given nitroglycerin and aspirin. I do not believe she requires systemic anticoagulation based on her symptoms and absence of chest pain currently. Her EKG also did not demonstrate any evidence of ischemia. I think we will obtain an echocardiogram in the morning and based on her symptoms, echocardiogram and biomarkers determine if more aggressive evaluation such as angiography is warranted. Present on Admission?: Yes History of Present Illness Reason for Consultation: Chest pain Requesting Physician: Herberth Attending Physician: Isela Kevin, DO History of Present Illness Patient is a 52-year-old woman without a known history of cardiac disease who has been feeling unwell for several weeks. Patient's initial complaint involved an element of dyspnea. She presented to an outpatient facility was felt to have an element of bronchitis versus pneumonia. She is treated with a short course of levofloxacin. Her symptoms improved slightly but later returned and included both dyspnea, fatigue and a nonproductive cough. The patient reportedly had some element of diaphoresis and feeling cold but did not have overt or docume nted fevers. Over the past 2 days the patient has felt markedly worse. She has had more coughing and more fatigue. She also develops symptoms of chest discomfort that were subxiphoid in nature. According to the patient and her was present for the interview today most of the symptoms were worse with coughing. However, the patient could have a sense of discomfort in the chest area for up to 30 minutes at a time. This is most notable yesterday. Last night she was very restless and slept poorly. This morning she felt very tired and fatigued and felt like he was time for another evaluation. Currently the patient has an element of fatigue but otherwise no complaints. She states that her breathing is fine. She is not coughing currently. The chest pain which she had earlier is resolved. Prior to this illness the patient was very active individual. 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 She has not report symptoms of limiting dyspnea or chest discomfort associated with that activity. She has not report generalized dizziness. She has no history of palpitations. She denies any history of syncope. Allergies Allergy/AdvReac Type Severity Reaction Status Date / Time latex Allergy Mild severe Verified 12/10/18 12:00 rash "looks like a burn" Penicillins Allergy Mild HIVES Verified 12/10/18 12:00 ciprofloxacin Allergy Hives Verified 12/10/18 17:31 NSAIDS (Non-Steroidal AdvReac Severe BLEEDING/STOMACH Verified 12/10/18 12:00 Anti-Inflamma ULCERS Home Medications Home Medications Medication Instructions Recorded Confirmed Type cyanocobalamin (vitamin B-12) 1,000 mcg PO QAM 08/16/18 12/10/18 History [Vitamin B-12] fluticasone propionate [Flonase 2 spray INTRANASAL QAM 08/16/18 12/10/18 History Allergy Relief] montelukast 10 mg PO HS 08/16/18 12/10/18 History acetaminophen [Tylenol] 325 mg PO Q6H PRN 12/10/18 12/10/18 History gabapentin 800 mg PO TID 12/10/18 12/10/18 History ranitidine HCl 75 mg PO QAM 12/10/18 12/10/18 History tramadol 100 mg PO Q6H PRN 12/10/18 12/10/18 History Patient History Medical History Anxiety no meds Chronic back pain GERD (gastroesophageal reflux disease) History of anesthesia reaction difficulty waking up after splenectomy History of gastric ulcer Kidney stones Thalassemia Surgical History History of appendectomy History of bilateral tubal ligation History of dilatation and curettage History of esophagogastroduodenoscopy (EGD) 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 History of tooth extraction History of total abdominal hysterectomy and bilateral salpingo-oophorectomy History of wisdom tooth extraction Family History Mother Family history of diabetes mellitus Father , due to [place] Myocardial infarction Mother Stroke x2 at 36 and 38 y/o Other No family history of adverse response to anesthesia Social History Preferred Language: [place]serratian Communication Ability: Effective Beliefs That Will Affect Care: None Current Living Situation: Spouse and Family Current Living Situation Comment: Lives with and granddaughter Feels Safe at Home: Yes Smoking Status: Current every day smoker Tobacco Type: cigarettes Cigarettes Per Day: 10-20 Second Hand Exposure: No Hx Alcohol Use: No Hx Substance Use: No Review of Systems Review of Systems: All systems reviewed & are unremarkable except as noted in HPI & below Last evening the patient did have an episode of �indigestion�. This was a different type of chest discomfort that she describes as a burning in the precordium. She has had this rarely before. The symptoms she believes lasted for over an hour. She essentially fell back to sleep and woke up with resolution of these symptoms. Physical Exam Physical Exam: She is alert and oriented x3. Mood affect appear normal. She answered all questions appropriately. HEENT: Sclerae are anicteric. Pupils are equal and reactive to light and accommodation. Extraocular movements were intact. Neuro: Cranial nerves intact Neck: Examination of the submandibular region did not reveal any significant lymphadenopathy. Carotids are palpable bilaterally and free of bruits on au scultation. There was no evidence of jugular venous distention. The thyroid was not enlarged. Lungs: Lungs are clear to auscultation bilaterally. There are no rales wheezes or rhonchi. She has normal respiratory effort without use of accessory muscles. There is normal pulmonary excursion. Cardiac: The rhythm was regular. S1 and S2 were normal. There are no murmurs on examination. The PMI was not markedly displaced on palpation. Chest: Patient mildly tender to palpation in the xiphoid area. Abdomen: The abdomen was soft and nontender. Extremities: Patient has bilateral radial pulses that are equal in intensity. There is no evidence cyanosis or clubbing. There was no evidence of significant peripheral edema bilaterally. Skin: There are no rashes noted on examination today. Results & Data Vital Signs (Past 12 Hours) Vital Signs Temp Pulse Pulse Resp BP BP Pulse Ox 12/10/18 15:34 36.6 C 93 H 18 137/87 92 12/10/18 14:31 76 16 121/88 91 12/10/18 14:01 80 16 135/86 93 12/10/18 13:31 79 15 122/81 93 12/10/18 13:01 74 14 132/92 98 12/10/18 12:35 77 12 113/91 95 12/10/18 11:51 86 20 123/73 94 12/10/18 11:36 18 98 12/10/18 10:57 36.8 C 101 H 18 128/83 96 Laboratory Results Abnormal Lab Results 12/10/18 12/10/18 12/10/18 11:26 11:26 11:26 WBC 18.23 H RBC 5.30 Hgb 12.0 Hct 36.8 L MCV 69.4 L MCH 22.6 L MCHC 32.6 RDW Std Deviation 42.4 RDW Coeff of Chava 17.2 H Plt Count 544 H MPV 9.3 Immature Gran % (Auto) 0.3 Neut % (Auto) 67.8 Lymph % (Auto) 18.3 [place] % (Auto) 7.2 Eos % (Auto) 5.9 Baso % (Auto) 0.5 Immature Gran # (Auto) 0.06 H Neut # (Auto) 12.36 H Lymph # (Auto) 3.33 [place] # (Auto) 1.31 H Eos # (Auto) 1.08 H Baso # (Auto) 0.09 Polychromasia 1+ Hypochromasia Present Basophilic Stippling Occasional Microcytosis Present Target Cells 1+ [place] Bodies 1+ Schistocytes 1+ PT 9.8 INR 1.0 APTT 24.7 PTT Ratio 0.9 Sodium 142 Potassium 4.1 Chloride 111 H Carbon Dioxide 28 Anion Gap 3.0 BUN 10 Creatinine 0.71 Est Cr Clr Drug Dosing 109.4 Est GFR ( Amer) 115.1 Est GFR (Non-Af Amer) 99.3 BUN/Creatinine Ratio 14.4 Glucose 78 POC Lactic Acid Reji Calcium 8.7 Total Bilirubin 0.2 AST 18 ALT 20 Alkaline Phosphatase 74 POC Troponin I Troponin I 0.204 H* Total Protein 7.2 Albumin 3.2 L Globulin 4.0 Albumin/Globulin Ratio 0.8 L Urine Color Urine Appearance Urine pH Ur Specific [place] Urine Protein Urine Glucose (UA) Urine Ketones Urine Blood Urine Nitrite Urine Bilirubin Urine Urobilinogen Ur Leukocyte Esterase Urine WBC (Auto) Urine RBC (Auto) U Hyaline Cast (Auto) U Epithel Cells (Auto) Urine Bacteria (Auto) Lyme Disease IgG Ab Lyme Disease IgM Ab 12/10/18 12/10/18 12/10/18 11:51 11:54 11:55 WBC RBC Hgb Hct MCV MCH MCHC RDW Std Deviation RDW Coeff of Chava Plt Count MPV Immature Gran % (Auto) Neut % (Auto) Lymph % (Auto) [place] % (Auto) Eos % (Auto) Baso % (Auto) Immature Gran # (Auto) Neut # (Auto) Lymph # (Auto) [place] # (Auto) Eos # (Auto) Baso # (Auto) Polychromasia Hypochromasia Basophilic Stippling Microcytosis Target Cells [place] Bodies Schistocytes PT INR APTT PTT Ratio Sodium Potassium Chloride Carbon Dioxide Anion Gap BUN Creatinine Est Cr Clr Drug Dosing Est GFR ( Amer) Est GFR (Non-Af Amer) BUN/Creatinine Ratio Glucose POC Lactic Acid Reji 1.49 Calcium Total Bilirubin AST ALT Alkaline Phosphatase POC Troponin I 0.13 H Troponin I Total Protein Albumin Globulin Albumin/Globulin Ratio Urine Color Yellow Urine Appearance Clear Urine pH 7.0 Ur Specific [place] 1.016 Urine Protein Negative Urine Glucose (UA) Negative Urine Ketones Negative Urine Blood 1+ H Urine Nitrite Negative Urine Bilirubin Negative Urine Urobilinogen Negative Ur Leukocyte Esterase 2+ H Urine WBC (Auto) 1-5 Urine RBC (Auto) 5-10 H U Hyaline Cast (Auto) 0 U Epithel Cells (Auto) 10-20 H Urine Bacteria (Auto) Negative Lyme Disease IgG Ab Lyme Disease IgM Ab 12/10/18 12/10/18 12/10/18 13:53 15:39 15:39 WBC RBC Hgb Hct MCV MCH MCHC RDW Std Deviation RDW Coeff of Chava Plt Count MPV Immature Gran % (Auto) Neut % (Auto) Lymph % (Auto) [place] % (Auto) Eos % (Auto) Baso % (Auto) Immature Gran # (Auto) Neut # (Auto) Lymph # (Auto) [place] # (Auto) Eos # (Auto) Baso # (Auto) Polychromasia Hypochromasia Basophilic Stippling Microcytosis Target Cells [place] Bodies Schistocytes PT INR APTT PTT Ratio Sodium Potassium Chloride Carbon Dioxide Anion Gap BUN Creatinine Est Cr Clr Drug Dosing Est GFR ( Amer) Est GFR (Non-Af Amer) BUN/Creatinine Ratio Glucose POC Lactic Acid Reji Calcium Total Bilirubin AST ALT Alkaline Phosphatase POC Troponin I Troponin I 0.309 H* 0.325 H* Total Protein Albumin Globulin Albumin/Globulin Ratio Urine Color Urine Appearance Urine pH Ur Specific [place] Urine Protein Urine Glucose (UA) Urine Ketones Urine Blood Urine Nitrite Urine Bilirubin Urine Urobilinogen Ur Leukocyte Esterase Urine WBC (Auto) Urine RBC (Auto) U Hyaline Cast (Auto) U Epithel Cells (Auto) Urine Bacteria (Auto) Lyme Disease IgG Ab Negative Lyme Disease IgM Ab Negative Diagnostic Findings Chest x-ray obtained in emergency room did not reveal any acute cardiopulmonary process Echocardiogram performed 2010 was normal. ECG Additional Comments: EKG demonstrated normal sinus rhythm without any significant ST or T-wave changes.
[2018-12-10] MEDS ORDERED: MONTELUKAST SODIUM 10 MG TABLET PO SCH (21:00)
[2018-12-10] MEDS: SULFAMETHOXAZOLE/TRIMETHOPRIM DS 800/160MG TAB PO SCH (21:37)
[2018-12-10] MEDS: GABAPENTIN 800 MG TAB PO SCH (21:37)
[2018-12-11] MEDS: TRAMADOL HCL 50 MG TABLET PO PRN ×2 (07:32→13:43)
[2018-12-11] MEDS: GABAPENTIN 800 MG TAB PO SCH ×2 (07:33→13:43)
[2018-12-11] MEDS: SULFAMETHOXAZOLE/TRIMETHOPRIM DS 800/160MG TAB PO SCH (07:33)
[2018-12-11] MEDS ORDERED: CYANOCOBALAMIN 500 MCG TABLET (VITAMIN B-12) PO SCH (09:00)
[2018-12-11] MEDS ORDERED: FLUTICASONE PROPIONATE NA SPR 16 GM BTL SCH (09:00)
[2018-12-11] MEDS ORDERED: NiCARDipine HCL INJ 2.5 MG/ML 10 ML AMP ONE (14:26)
[2018-12-11] MEDS ORDERED: NITROGLYCERIN/D5W 100MCG/ML 20ML SYR ONE (14:26)
[2018-12-11] MEDS ORDERED: MIDAZOLAM HCL 1 MG/ML 2ML VIAL ONE (14:26)
[2018-12-11] MEDS ORDERED: HEPARIN (PORCINE) 1000 UNIT/ML 10 ML (CATH LAB USE ONLY) ONE (14:26)
[2018-12-11] MEDS ORDERED: fentaNYL citrate 100 MCG/2 ML VIAL ONE (14:26)
--- NOTE | 2018-12-11 14:43 | Pre Anesthesia Assessment ---
Date of Service December 11, 2018 Pre Sedation Assessment Vital Signs Temp Pulse Pulse Pulse Pulse Resp BP 12/11/18 12:00 37.1 C 67 18 12/11/18 08:00 65 12/11/18 07:04 36.8 C 73 19 12/11/18 04:05 36.9 C 69 19 12/11/18 00:00 70 12/10/18 23:35 37.0 C 68 17 12/10/18 19:25 36.7 C 64 16 12/10/18 15:34 36.6 C 93 H 18 137/87 BP Pulse Ox 12/11/18 12:00 110/66 93 12/11/18 08:00 12/11/18 07:04 105/72 94 12/11/18 04:05 101/67 94 12/11/18 00:00 12/10/18 23:35 106/69 94 12/10/18 19:25 102/60 93 12/10/18 15:34 92 Cardiovascular + regular rate Respiratory + respiratory effort normal Pre-Sedation Airway Assessment Smoking Status: Current every day smoker Hx Sleep Apnea: No Hx Difficult Intubation: No Short, Thick Neck: No Thyromental Distance: > or= 3.5 Finger Breadths Oral Cavity: + WNL Mallampati Class: III ASA: ASA3 Procedure Planning Contraindications for Sedation: none Current Medications Reviewed: Yes Notes The planned sedation has been discussed with the patient. Informed Consent was obtained. I have identified the patient, determined the appropriateness of hamzah tion and have assessed the patient immediately prior to the procedure. All medicine(s) and interventions are by my order.
[2018-12-11] MEDS ORDERED: ASPIRIN 81 MG CHEW ONE (14:52)
[2018-12-11] MEDS ORDERED: ACETAMINOPHEN 325 MG TAB PO PRN (15:11)
--- NOTE | 2018-12-11 15:11 | Cardiac Catheterization ---
Cardiac Cath Procedure: Brief Procedure Date December 11, 2018 Pre-Procedure Diagnosis Pre-Procedure Diagnosis: Non STEMI AUC Score AUC Score: 8 Post-Procedure Diagnosis Post-Procedure Diagnosis: Normal Coronary Arteries Procedure(s) Performed Procedure(s) Performed: Coronary Angiography and Left Heart Cath Seismology Technical Officer Cecil Reyna MD Wire Spooler(s) none Estimated Blood Loss Estimated Blood Loss: 5cc Medication(s) Medication(s): Aspirin, Fentanyl, Heparin, Nicardipine, Nitroglycerin and Versed Preliminary Findings Right dominant system. Normal coronaries. No obstructive disease. Normal LVEDP Recommendations Recommendations: None Specimens Specimens: None Procedural Complication(s) None Disposition PCU
--- NOTE | 2018-12-11 19:12 | Cardiology Progress Note ---
Date of Service December 11, 2018 Assessment & Plan (1) Chest pain: Her chest pain did not appear to be cardiac in etiology. She did have some �heartburn� the night prior to her admission which was more suspicious for angina. However her coronary angiography did not reveal any evidence of an a cute coronary syndrome or coronary disease at all. It is unclear why she had mildly elevated cardiac biomarkers. This could been some form of myocarditis possibly stress-induced ischemia. The rise and fall suggested an acute coronary syndrome or at least an acute event rather than ongoing infection. Perhaps there was some transient ischemia or spasm? This point patient was advised to engage in aggressive risk factor modification in order to prevent coronary disease. This would include tobacco cessation. Subjective Patient is feeling better today. She denies any symptoms of chest discomfort currently. Breathing seems to be improved. She has more energy. Review of Systems Review of Systems: All systems reviewed & are unremarkable except as noted in HPI & below Physical Exam Physical Exam: She is alert and oriented x3. Mood affect appear normal. She answered all questions appropriately. HEENT: Sclerae are anicteric. Pupils are equal and reactive to light and acco mmodation. Extraocular movements were intact. Neuro: Cranial nerves intact Lungs: Lungs are clear to auscultation bilaterally. There are no rales wheezes or rhonchi. She has normal respiratory effort without use of accessory muscles. There is normal pulmonary excursion. Cardiac: The rhythm was regular. S1 and S2 were normal. There are no murmurs on examination. The PMI was not markedly displaced on palpation. Abdomen: The abdomen was soft and nontender. Extremities: Patient has bilateral radial pulses that are equal in intensity. There is no evidence cyanosis or clubbing. There was no evidence of significant peripheral edema bilaterally. Skin: There are no rashes noted on examination today. Results & Data Vital Signs (Past 12 Hours) Vital Signs Temp Pulse Pulse Pulse Resp BP BP 12/11/18 17:45 36.7 C 70 67 18 123/74 110/66 12/11/18 17:26 112/74 12/11/18 16:26 70 123/74 12/11/18 15:56 36.7 C 91 H 18 122/79 12/11/18 15:33 37.1 C 71 16 123/81 12/11/18 12:00 37.1 C 67 18 110/66 12/11/18 08:00 65 Pulse Ox 12/11/18 17:45 91 12/11/18 17:26 12/11/18 16:26 91 12/11/18 15:56 91 12/11/18 15:33 91 12/11/18 12:00 93 12/11/18 08:00 Laboratory Results Abnormal Lab Results 12/10/18 21:29 Troponin I 0.188 H* Diagnostic Findings Patient underwent coronary angiography today which did not reveal any evidence of significant coronary disease. Left ventricular filling pressures were normal.
--- NOTE | 2018-12-11 19:14 | Cardiac Catheterization ---
Date of Service December 11, 2018 Cardiac Cath Report Cardiac Cath Report Procedure performed: Cardiac catheterization Staff senior software architect: Cecil Reyna MD Indication: The patient is a 52-year-old woman with a history chest discomfort and elevated cardiac biomarkers who was felt to need coronary angiography for diagnostic utility Procedure in detail: The patient was informed of the risks benefits and alternatives to the intended procedure, she understood such and wished to proceed. He was taken to the cardiac catheterization suite in a fasting state. Conscious sedation was administered per protocol and the patient was monitored electrocardiographically throughout today's procedure. The right wrist area was prepped and draped in usual sterile fashion. This area was anesthetized using subcutaneous administration of a lidocaine solution. The right radial artery was then accessed using Seldinger technique, and a arterial sheath was placed at this site over a guidewire. The sheath was used to facilitate passage of the cardiac catheter for coronary angiography and left heart catheterization. Coronary angiogram was then obtained in multiple orthogonal views prior to removal of the catheter. At the conclusion of the procedure the sheath was removed and hemosta sis was achieved at the access site using manual pressure. The patient tolerated procedure well, there were no immediate complications. Equipment used: 5 [place] tiger 4 Findings: Opening aortic pressure: 91/62 millimeters of mercury Left ventricular pressure: 104/0 millimeters of mercury Left ventricular end-diastolic pressure 6 millimeters Hg Closing aortic pressure 105/63 millimeters of mercury Coronary angiography: Left main: Left main coronary artery is normal in size and caliber bifurcated in the left anterior descending left circumflex artery. There is no significant disease in this vessel Left anterior descending: Left anterior descending was a large transapical vessel. It produced a single large diagonal branch in some diminutive ongoing diagonal branches. There is no significant disease in this vessel Left circumflex: Left circumflex artery was not dominant vessel. It produced a medium-sized 1st OM a very diminutive 2nd OM and a large 3rd OM branch. There is no disease in this vessel Right coronary: Right coronary was a large dominant vessel without disease. Impression: Right-dominant coronary system No evidence of significant coronary disease Normal left ventricular pressures No evidence of aortic stenosis
--- NOTE | 2018-12-19 20:30 | Discharge Summary ---
Date of Service December 11, 2018 Admission HPI Per Admitting Provider 52 y/o F c/o chest pain. Pt states it is more of a heaviness that is substernal and to the L side of her chest. This has been happening intermittently for a few weeks, but it was much more intense yesterday and today. So she came to the ED. Pt states that about 3 weeks ago she started having URI type sx--coughing with green sputum production, congestion, and just generally feeling unwell. About 2 weeks ago, she went to an urgent care. She had a CXR and was dx with PNA. She was given levaquin x5 days, which she completed. Initially, she did feel improved, but a few days after completion of abx, she had return of cough, congestion, and just generally feeling unwell. Yesterday she was so weak she had difficulty walking and she slept most of the day. Pt denies fever, SOB, c/d, LE pain. She does note some mild R LE swelling around her ankle yesterday that is better today. She has no prior hx of chest pain or feeling this unwell. Pt states that she has not been eating much lately. She states that this is due to having n/v and R sided abd pain with PO intake. She gives examples of steak or fries, but states that there were other foods that would trigger. They use a [employer] grill for most of their cooking and fries are done in the oven. They do not eat fried foods. She states that she might have a few bites of something but then stops eating due to an effort to avoid these sx. She has not been seen for this. Pt does not hx of UTI. She has been having some discomfort with urination and some increased frequency. Principal Diagnosis chest pain Discharge Exam Constitutional: WD/WN, vitals as above Eyes: normal visual patel by confrontation and + anicteric sclerae Neck: normal visual inspection and trachea midline Respiratory: normal respiratory effort, lungs clear to auscultation Cardiovascular: Rate/Rhythm: regular rate and regular rhythm Gastrointestinal (Abdomen): Inspection/Auscultation: abdomen not distended Percussion/Palpation: abdomen soft; abdomen nontender Musculoskeletal: Head/Neck/Chest: normocephalic and head atraumatic Trace R sided nonpitting edema around lateral malleolus, peripheral pulses intact Substernal and L sided chest pain that is reproducible to palpitation Skin: no rashes, warm and dry Neurologic: awake; not confused Speech / Cognition: normal speech Psychiatric: A+Ox3, euthymic affect Discharge Data Allergies Allergy/AdvReac Type Severity Reaction Status Date / Time latex Allergy Mild severe Verified 12/10/18 12:00 rash "looks like a burn" Penicillins Allergy Mild HIVES Verified 12/10/18 12:00 baclofen Allergy Unverified 12/16/18 11:34 ciprofloxacin Allergy Hives Verified 12/10/18 17:31 sulfamethoxazole Allergy Unverified 12/16/18 11:34 [From Bactrim] trimethoprim [From Bactrim] Allergy Unverified 12/16/18 11:34 NSAIDS (Non-Steroidal AdvReac Severe BLEEDING/STOMACH Verified 12/10/18 12:00 Anti-Inflamma ULCERS Consultations 12/10/18 13:17 ED Decision to Admit Stat 12/10/18 15:34 Consult Cardiology Routine Procedures Performed Operation Date: 12/11/18 14:30 Actual Procedures p Cath, Left with Cors and Vent - Jamaal Reyna MD s Cineradiography w/Routine Exam - Jamaal Reyna MD Ordered Studies 12/11/18 14:34 CL Cath Imgs for PACS use only Routine Hospital Course (1) Chest pain: Elevated trop at 0.13 -> 0.2 EKG WNL CXR neg for acute CBC, PRP WNL ECHO pending Awaiting cardiology eval, will defer heparin drip to cardiology team Of note, pt has been with decreased PO intake due to GI issues and generally feeling unwell--possible muscle breakdown related to this could cause a slightly elevated trop Cardiac cath summary: Impression: Right-dominant coronary system No evidence of significant coronary disease Normal left ventricular pressures No evidence of aortic stenosis Appreciate input: Her chest pain did not appear to be cardiac in etiology. She did have some �heartburn� the night prior to her admission which was more suspicious for angina. However her coronary angiography did not reveal any evidence of an acute coronary syndrome or coronary disease at all. It is unclear why she had mildly elevated cardiac biomarkers. This could been some form of myocarditis possibly stress-induced ischemia. The rise and fall suggested an acute coronary syndrome or at least an acute event rather than ongoing infection. Perhaps there was some transient ischemia or spasm? This point patient was advised to engage in aggressive risk factor modification in order to prevent coronary disease. This would include tobacco cessation. (2) Abnormal urine: UA noted + leuk est, neg nitrites, + blood Hx of UTIs and has UTI sx WBC elevated Will start on cipro and monitor Discharged on bactrim. (3) PNA (pneumonia): Completed course of abx prior CXR neg for PNA (4) Abdominal pain: R sided and with high fat/cholesterol foods LFTs WNL Will likely need GB evaluation as outpt (5) Back pain: continue home meds, tramadol and gabapentin (6) Tobacco use disorder: Would like a nicotine patch if no issues from cardiac standpoint (7) GERD (gastroesophageal reflux disease): continue home meds (8) Anxiety: Not on current medications for this (9) DVT prophylaxis: SCDs Total Time Total Time Spent Total Time Spent (In Minutes): 32 Total Time Includes: Examination of the Patient, Discharge Planning and Medication Reconciliation Discharge Plan Discharge Items Patient Disposition: Home - Self-Care Reason For Visit: CHEST PAIN Discharge Diagnosis: chest pain Discharge Goals: Decrease discomfort Activity: Resume your previous activity Non-emergency contact: Primary Care Provider Call non-emergency contact if: you have any medication questions Follow-up/Referrals: Amaya Rojas MD [Primary Care Provider] - Diet: Regular Addtl Provider Instructions: You were seen for chest pain. You had a cardiac cath which was normal. You also had symptoms of a UTI, will place you on bactrim for 4 more doses or 2 more day. Will have you f/u with PCP in AM. Prescriptions: Continued cyanocobalamin (vitamin B-12) [Vitamin B-12] 1,000 mcg Tablet 1,000 mcg PO QAM RF: 0 gabapentin 800 mg tablet 800 mg PO TID RF: 0 ranitidine HCl 75 mg Tablet 75 mg PO QAM RF: 0 acetaminophen [Tylenol] 325 mg Tablet 325 mg PO Q6H PRN (Reason: Pain) RF: 0 No Action gabapentin 300 mg capsule 300 mg PO TID Qty: 90 RF: 0 peg 3350-electrolytes [id number] -5.86 gram recon soln PO .MIX AND DRINK PER Qty: 1 RF: 0 tramadol 50 mg tablet 100 mg PO Q6H PRN (Reason: Pain) Qty: 240 RF: 0 pantoprazole 40 mg tablet,delayed release (DR/EC) 40 mg PO DAILY Qty: 90 RF: 1 montelukast 10 mg tablet 10 mg PO DAILY Qty: 90 RF: 1 lorazepam 0.5 mg tablet 0.5 mg PO HS PRN (Reason: anxiety) Qty: 30 RF: 0 fluticasone propionate [Flonase Allergy Relief] 50 mcg/actuation spray,suspension 2 spray INTRANASAL DAILY Qty: 16 RF: 3 Stand-Alone Forms: [facility] Discharge Orders: Discharge Order (Routine); Ordered 12/11/18 Ordered By: Babar Oro Admission Data Admit Date/Time: 12/10/18 14:20 Attending Provider: Babar Oro Admit Provider: Isela Kevin Primary Care Provider: Amaya Rojas Other Providers: Jamaal Reyna Service: Telemetry Other Interventions: Discharge Summary Assessment (RN) Last Done: 12/11/18 17:45 DC Date/Time DO NOT enter until pt leaves facility: 12/11/18 18:15
== END 2018-12-11 18:15 | disposition home or self-care (01) | DRG 287 ==
LOC: ED 10:49 → SUATTDRO 14:20 → 2S 14:20
DX: Z79.899 Other long term (current) drug therapy; Z88.6 Allergy status to analgesic agent; Z88.1 Allergy status to other antibiotic agents; Z87.01 Personal history of pneumonia (recurrent); Z82.49 Family history of ischemic heart disease and other diseases of the circulatory system; R82.90 Unspecified abnormal findings in urine; Z91.040 Latex allergy status; R07.9 Chest pain, unspecified; K21.9 Gastro-esophageal reflux disease without esophagitis; R10.9 Unspecified abdominal pain; R79.89 Other specified abnormal findings of blood chemistry; Z88.0 Allergy status to penicillin; M54.9 Dorsalgia, unspecified; F17.210 Nicotine dependence, cigarettes, uncomplicated